=== PATIENT | male | born 1940 | race African-American/Black ===

== ENCOUNTER → 2016-07-07 | Outpatient (CLI) | payer OTHER, BC ==
[~2016-07-07] MED LIST: ACETAMINOPHEN650 M5 PO; ADULT LOW DOSE81 MG PO; AMLODIPINE BESYL5 MG PO; ASPIRIN EC81 M1 PO; ASPIRIN81 M2 PO; ATORVASTATIN CA10 MG PO; ATORVASTATIN CA80 MG PO; AVALIDE 300-121 EACH PO; CARVEDILOL3.125 MG PO; CLOPIDOGREL75 MG PO; COZAAR100 MG PO; DULCOLAX5 MG PO; EXELON 9.5 MG9.5 MG TD; GLUCOPHAGE XR750 MG PO; GLUCOPHAGE500 MG PO; GLUMETZA500; GLYBURIDE 3 MG M3 M1 PO; GLYBURIDE MICR1.5 MG PO; GLYBURIDE MICRON6 MG PO; GLYCRON6 MG PO; IMDUR 30 MG TAB30 M1 PO; KEFLEX500 MG PO; LAXATIVE PEG 3317 GM PO; LEVEMIR SUBQ; LOPRESSOR25 PO; NEURONTIN 300300 M1 PO; NITROSTAT0.4 MG SL; NOVOLOG100 UNIT/1; NOVOLOG100 UNIT/1 SQ; NOVOLOG100 UNIT/1 SUBQ; PANTOPRAZOLE SO40 M1 PO; PAXIL10 MG; PLAVIX 75 MG TA75 M1 PO; POLYOX WSR-3011 GM MC; REMERON15 MG PO; TAMSULOSIN HCL0.4 M1 PO; TAMSULOSIN HCL0.4 MG PO; TRIAMTERENE/HCT1 CA1 OR; ZOFRAN ODT4 MG PO
[2016-07-07 09:30] LABS: CREATININE 1.4 mg/dL (0.7-1.3)
== END ==
LOC: CAT 08:51 → LAB 17:35
PROVIDERS: Internal Medicine
DX: R63.4 Abnormal weight loss (principal); R10.9 Unspecified abdominal pain

== ENCOUNTER 2016-08-26 18:59 | Emergency (ER) | payer OTHER, BC ==
[~2016-08-26] VITALS: Ht 175.3 cm; Wt 72.6 kg
--- NOTE | ~2016-08-26 | EKG ---
[facility] [place] [address] ELECTROCARDIOGRAM REPORT Name: PHILLIP LOMBARDO Room #: DEP FABY Walker#: [id number] Admission: 08/26/16 Attend Phys: Discharge: 08/26/16 Date of : 38 Report #: [id number] THIS REPORT FOR: //name// [facility] ED Test Date: 2016-08-26 Test Time: 19:37:02 Pat Name: PHILLIP LOMBARDO Department: Room: Gender: [employer]: NICOLLE : 1940 Requested By: Refugio Wyatt Order Number: [id number] MD: Bobby Bocanegra Measurements Intervals [place] Rate: 68 P: 58 NJ: 220 QRS: -56 QRSD: 100 T: 90 QT: 421 QTc: 448 Interpretive Statements Sinus rhythm Prolonged [place] interval Consider left atrial enlargement Inferior infarct, old Compared to ECG 12/16/2014 11:41:46 First degree AV block now present No significant change was found Electronically Signed On 08-27-2016 14:03:53 CDT by Bobby Bocanegra [email or web address] <ELECTRONICALLY SIGNED> By: Bobby Bocanegra MD, [facility] 08/27/16 1403 36 36 Bobby Bocanegra MD, [facility] /EPI
[2016-08-26 19:37] LABS: ABSOLUTE NEUTROPHILS 3.5 thou/uL (1.4-8.2); BASOPHILS 0.7 % (0.0-2.0); EOSINOPHILS 2.2 % (0.0-3.0); HEMATOCRIT 36.7 % (42.0-52.0); HEMOGLOBIN 12.7 gm/dL (14.0-18.0); LYMPHOCYTES 24.1 % (24.0-44.0); MCH 28.3 pg (26.0-34.0); MCHC 34.5 g/dL (28.0-37.0); MONOCYTES 11.6 % (1.0-8.0); PLATELET COUNT 188 thou/uL (150-400); POLYS 61.4 % (36.0-66.0); RBC 4.47 mil/uL (4.50-6.00); RDW 14.4 % (10.5-14.5); WBC 5.6 thou/uL (4.0-11.0)
[2016-08-26 19:38] LABS: MANUAL DIFF NO
[2016-08-26 19:42] LABS: ANION GAP 6 mmol/L (7-16); BUN 15 mg/dL (7-18); CALCIUM 8.8 mg/dL (8.5-10.1); CHLORIDE 107 mmol/L (98-107); CO2 27 mmol/L (21-32); GLUCOSE 100 mg/dL (74-106); POTASSIUM 3.9 mmol/L (3.5-5.1); SODIUM 140 mmol/L (136-145)
[2016-08-26 19:54] LABS: ALBUMIN 3.4 g/dL (3.4-5.0); ALKALINE PHOSPHATASE 142 U/L (46-116); MAGNESIUM 1.9 mg/dL (1.8-2.4); NT-PRO BRAIN NAT PEPTIDE 350 pg/mL (<300); SGOT 13 U/L (15-37); SGPT 10 U/L (30-65); TOTAL BILIRUBIN 0.5 mg/dL (<0.1-1.0); TOTAL PROTEIN 7.1 g/dL (6.4-8.2); TROPONIN-I < 0.04 ng/mL (<0.04-0.07)
[2016-08-26] MEDS ORDERED: CLEOCIN HCL150 MG PO (20:49)
[2016-08-26] MEDS ORDERED: CIPROFLOXACIN500 M1 PO (20:49)
[2016-08-26 21:34] VITALS: BP 192/71
== END 2016-08-26 22:03 | disposition home or self-care (01) ==
LOC: ER 18:59
PROVIDERS: Emergency Medicine
DX: N49.2 Inflammatory disorders of scrotum (principal); F03.90 Unspecified dementia, unspecified severity, without behavioral disturbance, psychotic disturbance, mood disturbance, and anxiety; R53.1 Weakness; I25.2 Old myocardial infarction; I10 Essential (primary) hypertension; E11.9 Type 2 diabetes mellitus without complications; F17.210 Nicotine dependence, cigarettes, uncomplicated; Z86.73 Personal history of transient ischemic attack (TIA), and cerebral infarction without residual deficits; Z88.8 Allergy status to other drugs, medicaments and biological substances